=== PATIENT | male | born 1980 ===

== ENCOUNTER 2019-09-17 13:13 | Emergency (ER) | payer OTHER, BC ==
--- NOTE | 2019-09-17 13:39 | ER Document Report ---
ED Medical Screen (RME) - General Chief Complaint: Psych Problem Stated Complaint: PSYCH EVAL Time Seen by Provider: 09/17/19 13:21 Primary Care Provider: JIM ROBLEDO MD [Primary Care Provider] - Follow up as needed Mode of Arrival: Ambulatory Information source: Patient, Relative Notes: 39-year-old male presents with history of PTSD possible borderline personality possible bipolar with his for complaints of confusion. reports that he has been appearing seen increased confusion lately. Patient insists that it is the that is confused. Patient requested me to talk directly to the and ask her questions about the kids. I do this, she answers with the same answers he provided and patient reports "says see she is confused". reports he is not physical. Renetta in behavioral health is notified of patient's presentation. I have greeted and performed a rapid initial assessment of this patient. A comprehensive ED assessment and evaluation of the patient, analysis of test results and completion of the medical decision making process will be conducted by additional ED providers. TRAVEL OUTSIDE OF THE [place] IN LAST 30 DAYS: No Doctor's Discharge - Discharge Referrals: JIM ROBLEDO MD [Primary Care Provider] - Follow up as needed
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
[2019-09-17 14:52] LABS: ABSOLUTE EOSINOPHILS # (AUTO) 0.1 10^3/uL (0.0-0.6); ABSOLUTE LYMPHOCYTES (AUTO) 2.2 10^3/uL (0.5-4.7); ABSOLUTE MONOCYTES (AUTO) 0.3 10^3/uL (0.1-1.4); ABSOLUTE NEUT (AUTO) 1.8 10^3/uL (1.7-8.2); BASOPHILS % (AUTO) 0.4 % (0-2); EOSINOPHILS % (AUTO) 2.8 % (0-6); HEMATOCRIT 39.3 % (37.9-51.0); HEMOGLOBIN 13.4 g/dL (13.5-17.0); LYMPHOCYTES % (AUTO) 48.8 % (13-45); MEAN CORPUSCULAR HEMOGLOBIN 31.2 pg (27.0-33.4); MEAN CORPUSCULAR HGB CONC 34.2 g/dL (32.0-36.0); MEAN CORPUSCULAR VOLUME 91 fl (80-97); MONOCYTES % (AUTO) 7.3 % (3-13); PLATELET COUNT 206 10^3/uL (150-450); RED CELL DISTRIBUTION WIDTH 13.2 % (11.5-14.0); SEGMENTED NEUTROPHILS % (AUTO) 40.7 % (42-78); TOTAL CELLS COUNTED % (AUTO) 100 %; WHITE BLOOD COUNT 4.5 10^3/uL (4.0-10.5)
[2019-09-17 14:56] LABS: ALBUMIN 4.2 g/dL (3.5-5.0); ALKALINE PHOSPHATASE 57 U/L (38-126); ANION GAP 6 (5-19); ASPARTATE AMINO TRANSFERASE 34 U/L (17-59); BILIRUBIN,TOTAL 0.4 mg/dL (0.2-1.3); BLOOD UREA NITROGEN 20 mg/dL (7-20); CALCIUM 9.3 mg/dL (8.4-10.2); CARBON DIOXIDE 28 mmol/L (22-30); CHLORIDE 107 mmol/L (98-107); GLUCOSE 88 mg/dL (75-110); POTASSIUM 4.5 mmol/L (3.6-5.0); TOTAL PROTEIN 7.4 g/dL (6.3-8.2)
[2019-09-17 14:58] LABS: ACETAMINOPHEN < 10 ug/mL (10-30); ALCOHOL < 10 mg/dL (NONE DETECTED); SALICYLATE < 1.0 mg/dL (2.0-20.0)
[2019-09-17 16:10] LABS: APPEARANCE,URINE CLEAR; BILIRUBIN,URINE NEGATIVE (NEGATIVE); COLOR,URINE YELLOW; GLUCOSE, URINE NEGATIVE (NEGATIVE); KETONES,URINE NEGATIVE (NEGATIVE); LEUKOCYTE ESTERASE,URINE NEGATIVE (NEGATIVE); NITRITE,URINE NEGATIVE (NEGATIVE); PROTEIN,URINE NEGATIVE (NEGATIVE); URINE SPECIFIC GRAVITY 1.028; UROBILINOGEN,URINE NEGATIVE mg/dL (<2.0)
[2019-09-17 16:17] LABS: URINE AMPHETAMINES SCREEN NEGATIVE; URINE BARBITURATES SCREEN NEGATIVE; URINE BENZODIAZEPINES SCREEN NEGATIVE; URINE COCAINE SCREEN NEGATIVE; URINE METHADONE SCREEN NEGATIVE; URINE PHENCYCLIDINE SCREEN NEGATIVE
[2019-09-17 16:18] LABS: URINE MARIJUANA (THC) SCREEN UNCONFIRMED POSITIVE
[2019-09-17] MEDS ORDERED: BENZTROPINE MESYLATE 1 MG TABLET PO ONE (17:03)
[2019-09-17] MEDS ORDERED: HALOPERIDOL 5 MG TABLET PO ONE (17:03)
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
[2019-09-17] MEDS: BENZTROPINE MESYLATE 1 MG TABLET PO SCH (18:49)
[2019-09-17] MEDS: HALOPERIDOL 5 MG TABLET PO SCH (18:52)
[2019-09-17] MEDS ORDERED: ZIPRASIDONE MESYLATE INJ/PF 20 MG SDV IM ONE (22:01)
--- NOTE | 2019-09-18 00:38 | EKG REPORT ---
SEVERITY:- BORDERLINE ECG - SINUS BRADYCARDIA BORDERLINE INFERIOR Q WAVES : Confirmed by: Wilman Rosario 18-Sep-2019 00:37:31
[2019-09-18] MEDS: HALOPERIDOL 5 MG TABLET PO SCH ×2 (10:11→17:08)
[2019-09-18] MEDS: BENZTROPINE MESYLATE 1 MG TABLET PO SCH (10:11)
--- NOTE | 2019-09-18 12:02 | ER Document Report ---
Doctor's Note Notes: 09/18/19 12:01 PHYSICAL EXAMINATION: GENERAL: Appears well, healthy, well-nourished, no acute distress. LUNGS: Equal breath sounds bilaterally and clear to auscultation. No wheezes rales or rhonchi. CARDIOVASCULAR: S1-S2, regular rate, regular rhythm. Radial pulses 2+, normal. ABDOMEN: Normoactive bowel sounds. Soft, nontender, no guarding, no rebound tenderness, and no masses palpated. PSYCH: Normal mood, normal affect. Patient denies any suicidal or homicidal ideation at this time. Denies any pain. Patient states that he did not feel suicidal or homicidal in the beginning. Awaiting disposition from mental health. 09/18/19 17:19 Mental health's recommendation are to add Zyprexa 5 mg p.o. twice daily, add Thorazine 50 mg IM every 6 hours as needed, continue Cogentin 1 mg p.o. daily, and discontinue the Haldol. [facility]. Patient will be reevaluated in the morning after medication changes.
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
[2019-09-18] MEDS: OLANZAPINE 5 MG TABLET PO SCH (18:48)
[2019-09-18] MEDS: CHLORPROMAZINE HCL INJ 25 MG/1 ML AMPULE IM PRN (22:56)
[2019-09-19] MEDS: OLANZAPINE 5 MG TABLET PO SCH (09:47)
[2019-09-19] MEDS: CHLORPROMAZINE HCL INJ 25 MG/1 ML AMPULE IM PRN (09:47)
[2019-09-19] MEDS: BENZTROPINE MESYLATE 1 MG TABLET PO SCH (09:47)
--- NOTE | 2019-09-19 10:09 | ER Document Report ---
Doctor's Note Notes: 09/19/19 10:07 My mental health hold Patient's vital signs and previous labs, diagnostic images reviewed. Reviewed mental health notes, nurse's notes and previous providers notes. VSS. Pt is in no distress at this time. Denies any SI or HI. General: A&Ox3. Answers questions appropriately. Heart: RRR Lungs: CTAB Psych: Flat affect A/P: Continue monitoring and rec's per MH. Normal diet Awaiting for mental health to get their assessment
--- NOTE | 2019-09-19 11:29 | PSYCHOLOGICAL NOTE ---
Psych Note - Psych Note Date seen by psych provider: 09/19/19 Psych Note: Reason for consult: Patient is a 39-year-old male who presents to ED via POV accompanied by his with concerns for confusion. Chart review: no new concerns. Clinician spoke with attending evening nurse reports the patient only slept for 3 hours at most. Patient has been noted to be anxious and requesting assistance with medications to calm himself. [facility] currently on psych diversion Clinician sent paperwork to [facility]; patient has been accepted transportation will be requested Medication recommendations per [facility] contracted psychiatrist Dr. Camille MD are as follows: Zyprexa 5mg twice daily Cogentin 1MG, daily Impression/Plan: Patient is recommended for continued IVC. Patient continues to demonstrate wes with pressured speech and tangential thought processes. Medication recommendations have been provided. Patient has been accepted to [facility]; transportation has been requested. Dr. Malloy was consulted on the care and management of this patient; attending physician is in agreement with recommendations and disposition.
[2019-09-19 11:53] VITALS: BP 114/73
== END 2019-09-19 13:00 ==
LOC: ER 13:13
DX: F28 Other psychotic disorder not due to a substance or known physiological condition (principal); F31.9 Bipolar disorder, unspecified; F43.10 Post-traumatic stress disorder, unspecified; R45.851 Suicidal ideations
CPT/HCPCS: 93005; 99285; 96372; 36415; 80307 ×4; 85025; 80053; 81001; 93010; J3230 ×2; J3486